=== PATIENT | male | born 1955 | race Asian ===

== ENCOUNTER 2016-09-03 15:57 | Emergency (ER) | payer MEDICAID, OTHER ==
[~2016-09-03] VITALS: Ht 162.6 cm; Wt 70.7 kg
[~2016-09-03 15:57] MED LIST: ASPI-496 PO; ATOR20TA9 PO; CLOP75TA22 PO
[2016-09-03] MEDS ORDERED: MORPHINE SULFATE 4 MG/ML, 1ML ONE ×2 (16:21→18:52)
[2016-09-03] MEDS ORDERED: ASPIRIN 81 MG TABLET CHEW ONE (16:22)
[2016-09-03] MEDS ORDERED: ONDANSETRON 2MG/ML, 2ML ONE (16:22)
[2016-09-03] MEDS ORDERED: ASPIRIN 81 MG TABLET CHEW PO ONE (16:30)
[2016-09-03] MEDS ORDERED: ONDANSETRON 2MG/ML, 2ML IVPush ONE (16:30)
[2016-09-03] MEDS ORDERED: SODIUM CHLORIDE FLUSH 10ML SYR IVF ONE ×2 (16:30→17:00)
[2016-09-03] MEDS ORDERED: MORPHINE SULFATE 4 MG/ML, 1ML IVPush PRN (16:30)
[2016-09-03 16:41] LABS: HEMOGLOBIN 14.2 g/dL (13.7-18.0)
[2016-09-03 16:50] LABS: BLOOD UREA NITROGEN 23 mg/dL (7-18)
[2016-09-03 16:54] LABS: IS PT STATUS REG ER OR PRE ER? YES
[2016-09-03] MEDS ORDERED: DIPHENHYDRAMINE 50 MG/ML, 1ML IVPush ONE (17:00)
[2016-09-03] MEDS ORDERED: METOCLOPRAMIDE 5 MG/ML, 2ML IVPush ONE (17:00)
[2016-09-03] MEDS ORDERED: KETOROLAC 30 MG/1 ML IVPush ONE (17:00)
[2016-09-03] MEDS ORDERED: SODIUM CHLORIDE 0.9% 1,000ML IVBOLUS ONE ×2 (17:00→19:30)
[2016-09-03] MEDS ORDERED: METOCLOPRAMIDE 5 MG/ML, 2ML ONE (17:01)
[2016-09-03] MEDS ORDERED: KETOROLAC 30 MG/1 ML ONE (17:01)
[2016-09-03] MEDS ORDERED: DIPHENHYDRAMINE 50 MG/ML, 1ML ONE (17:02)
[2016-09-03] MEDS ORDERED: morphine SULFATE 10 MG/ML, 1ML IVPush ONE (19:00)
[2016-09-03] MEDS ORDERED: OMNIPAQUE 350 MG/ML, 100ML BOTTLE ONE (19:22)
[2016-09-03 19:51] VITALS: BP 117/61
== END 2016-09-03 19:53 | disposition home or self-care (01) ==
LOC: ED 19:30
DX: R51 Headache (principal); R11.2 Nausea with vomiting, unspecified; R07.89 Other chest pain; I10 Essential (primary) hypertension; Z95.818 Presence of other cardiac implants and grafts
CPT/HCPCS: 36415; 70450; 70496; 71010; 80048; 82040; 83880; 84484; 85025; 93005; 96374; 96375; 99285; J1200; J1885; J2270; J2765; J7030; Q9967

== ENCOUNTER → 2016-09-09 | Outpatient (CLI) | payer MEDICAID, OTHER | END | disposition home or self-care (01) | LOC: CVU 15:27 | PROVIDERS: ATTEND Internal Medicine Cardiovascular Disease | DX: I65.23 Occlusion and stenosis of bilateral carotid arteries (principal); I25.10 Atherosclerotic heart disease of native coronary artery without angina pectoris; Z95.5 Presence of coronary angioplasty implant and graft; Z87.891 Personal history of nicotine dependence | CPT/HCPCS: 93880 ==